=== PATIENT | male | born 1985 ===

== ENCOUNTER 2019-08-02 17:23 | Emergency (ER) | payer OTHER ==
[~2019-08-02] VITALS: Ht 180.3 cm; Wt 98.4 kg
[2019-08-02] MEDS ORDERED: Norco 7.5-3251 EACH PO (20:30)
[2019-08-02] MEDS ORDERED: METPRE4DP PO (20:30)
[2019-08-02] MEDS ORDERED: IBUP800 PO (20:30)
[2019-08-02] MEDS ORDERED: Robaxin-750750 MG PO (20:30)
== END 2019-08-02 20:50 | disposition home or self-care (01) ==
LOC: ER 17:23
DX: S39.012A Strain of muscle, fascia and tendon of lower back, initial encounter (principal); I10 Essential (primary) hypertension; X50.1XXA Overexertion from prolonged static or awkward postures, initial encounter; Y99.0 Civilian activity done for income or pay
CPT/HCPCS: 72100; 96374; 96375; 99283-25; J1100; J1170; J1885